=== PATIENT | female | born 1990 ===

== ENCOUNTER 2017-04-23 08:23 | Outpatient (CLI) | payer MEDICAID ==
--- NOTE | 2017-04-23 09:54 | Ultrasound Report ---
LEFT BREAST ULTRASOUND: 04/23/17 08:23:00 CLINICAL: Eleven weeks with a palpable left breast lump. FINDINGS: Ultrasound of the upper outer left breast was performed and demonstrated normal fibroglandular structures with no mass, cyst or shadowing. I examined the breast myself and felt no mass. IMPRESSION: Normal left breast ultrasound. BI-RADS 1 - - Negative RECOMMENDATION: Clinical followup.
== END 2017-04-23 08:24 | disposition home or self-care (01) ==
LOC: SPVWC 08:23
PROVIDERS: ATTEND Obstetrics & Gynecology
DX: N63 Unspecified lump in breast (principal)